=== PATIENT | female | born 1990 ===

== ENCOUNTER 2022-02-03 15:15 | Outpatient (CLI) | payer OTHER | END 2022-02-03 15:25 | disposition home or self-care (01) | LOC: LAB 15:15 | PROVIDERS: ATTEND Obstetrics & Gynecology | DX: E03.9 Hypothyroidism, unspecified (principal); E78.00 Pure hypercholesterolemia, unspecified; N39.0 Urinary tract infection, site not specified; I10 Essential (primary) hypertension; E55.9 Vitamin D deficiency, unspecified; R79.9 Abnormal finding of blood chemistry, unspecified; R79.89 Other specified abnormal findings of blood chemistry; Z00.00 Encounter for general adult medical examination without abnormal findings; Z11.4 Encounter for screening for human immunodeficiency virus [HIV]; Z21 Asymptomatic human immunodeficiency virus [HIV] infection status ==